=== PATIENT | female | born 1975 | race Caucasian/White ===

== ENCOUNTER 2016-09-22 19:12 | Emergency (ER) | payer MEDICAID ==
[~2016-09-22] VITALS: Ht 162.6 cm; Wt 59.0 kg
[2016-09-22 19:17] VITALS: Ht 162.6 cm; Wt 59.0 kg
[2016-09-22] MEDS ORDERED: IBUP-1542 PO (19:41)
[2016-09-22] MEDS ORDERED: IBUPROFEN 600 MG TAB PO ONE (20:00)
--- NOTE | 2016-09-22 21:22 | ERD ---
ER Documentation Chief Complaint Date/Time DATE: 09/22/16 TIME: 21:21 Chief Complaint left foot and leg x 1 month HPI Patient is a 41-year-old female with no medical problems who presents with bilateral foot pain. The pain she has had for 1 month. She said that all day her feet hurt. She tried Tylenol with no help. She had no trauma. She does not currently have a primary doctor. Upon review of old medical records this is the patient's sixth visit to the ER since 2011. ROS All systems reviewed and are negative except as per history of present illness. Medications Home Meds Active Scripts Ibuprofen* (Motrin*) 600 Mg Tab, 600 MG PO Q6H Y for PAIN AND OR ELEVATED TEMP, #30 TAB Prov:SHAHBAZ CHAUDHRY MD 09/22/16 Allergies Allergies: Coded Allergies: No Known Allergy (Unverified , 08/21/14) PMhx/Soc Medical and Surgical Hx: pt denies Medical Hx, pt denies Surgical Hx History of Surgery: No Anesthesia Reaction: No Hx Neurological Disorder: No Hx Respiratory Disorders: No Hx Cardiac Disorders: No Hx Psychiatric Problems: No Hx Miscellaneous Medical Probl: No Hx Alcohol Use: No Hx Substance Use: No Hx Tobacco Use: No Smoking Status: Never smoker FmHx Family History: No diabetes Physical Exam Vitals Vital Signs Date Time Temp Pulse Resp B/P Pulse Ox O2 Delivery O2 Flow Rate FiO2 09/22/16 19:17 97.8 75 20 109/56 99 Physical Exam Const: No acute distress Head: Atraumatic Eyes: Normal Conjunctiva ENT: Normal External Ears, Nose and Mouth. Neck: Full range of motion..~ No meningismus. Resp: Clear to auscultation bilaterally Cardio: Regular rate and rhythm, no murmurs Abd: Soft, non tender, non distended. Normal bowel sounds Skin: No sign of infection to the feet bilaterally Back: No midline or flank tenderness Ext: Pain to the plantar fasciitis of bilateral feet on the soles Neur: Awake and alert Psych: Normal Mood and Affect Results 24 hrs Current Medications Medications (Trade) Dose Ordered Sig/Tyler Route PRN Reason Start Time Stop Time Status Last Admin Dose Admin Ibuprofen (Motrin) 600 mg ONCE ONCE PO 09/22/16 20:00 09/22/16 20:01 DC 09/22/16 20:07 Procedures/MDM Patient is a 41-year-old female presents with bilateral foot pain. I believe she has plantar fasciitis. I do not believe she requires imaging tests at this time. She had no trauma. I doubt fracture dislocation. I doubt infection. She has good pulses. She can return for any worsening symptoms. The patient will be given ibuprofen for pain. She can return for any worsening symptoms. Departure Diagnosis: Primary Impression: Plantar fasciitis Additional Impression: Foot pain Laterality: bilateral Qualified Code: M79.671 - Pain in both feet Condition: Fair Patient Instructions: Plantar Fasciitis [facility] Usted se de la cruz hecho un examen mdico de control que le indica que no est en jaz condicin que requiera tratamiento urgente en el Departamento de Emergencia. Un estudio ms profundo y el tratamiento de vieira condicin pueden esperar sin ningn riesgo hasta que usted sea atendida/o en el consultorio de vieira mdico o jaz cl jovan. Es responsabilidad suya arreglar jaz hari para el seguimiento del alba. MANEJO DE CONDICIONES NO URGENTES EN EL FUTURO 1) Si usted tiene un mdico de atencin primaria: Usted debera llamar a vieira mdico de atencin primaria antes de venir al departamento de emergencia. Despus de las horas de consultorio, vieira doctor o vieira asociado/a est disponible por telfono. El mdico o enfermero de rosa en el servicio telefnico puede asesorarle por elvira medio para atender el problema, o alba contrario se puede programar jaz hari. 2) Si usted no tiene un mdico de atencin primaria: Llame al mdico o clnica de referencia que aparece abajo abelardo las horas de consultorio para hacer jaz hari para que le vean. CLINICAS: [facility] 193 [phone] [address] [facility] 629 [phone] [address] [facility] [phone] [facility] [phone] [facility] 554 [phone] [facility]. [phone] [address] Additional Instructions: Llame al doctor MAANA y escobar jaz HARI PARA DENTRO DE 1-2 NEELY.Dgale a la secretaria que nosotros le instruimos hacer esta hari.Avise o llame si vieira condicin se empeora antes de la hari. Regresa aqui si peor o no mejor. SHAHBAZ CHAUDHRY MD September 22, 2016 21:22
== END 2016-09-22 20:08 | disposition home or self-care (01) ==
LOC: FTE 19:12
DX: M72.2 Plantar fascial fibromatosis (principal); M79.672 Pain in left foot
CPT/HCPCS: Z7502; Z7610; 99283

== ENCOUNTER 2016-12-21 19:25 | Emergency (ER) | payer SELFPAY ==
[~2016-12-21] VITALS: Wt 56.0 kg
[~2016-12-21 19:25] MED LIST: IBUP-1542 PO
[2016-12-21] MEDS ORDERED: IBUP-1542 PO (21:29)
--- NOTE | 2016-12-21 21:29 | ERD ---
ER Documentation Chief Complaint Date/Time DATE: 12/21/16 Chief Complaint Right ear pain HPI The patient is a 41-year-old female who presents to the Emergency Department with complaint of right ear pain. The patient reports that yesterday she was cleaning out her ear using a Q-tip when she developed some pain. She is concerned that the cotton edge of the Q-tip may still be within her right ear. Therefore, she irrigated her ear out using hydrogen peroxide, water and suction , but continues to experience some pain. She presents the emergency department for evaluation. Denies any otorrhea or bloody discharge from the ear. Denies any change in hearing. Denies tinnitus. Denies dizziness, weakness, headache, nausea or vomiting. Denies any other complaints at this time. ROS All systems reviewed and are negative except as per history of present illness. Medications Home Meds Active Scripts Ibuprofen* (Motrin*) 600 Mg Tab, 600 MG PO Q6, #20 TAB Prov:DARLING LEVY PA-C 12/21/16 Ibuprofen* (Motrin*) 600 Mg Tab, 600 MG PO Q6H Y for PAIN AND OR ELEVATED TEMP, #30 TAB Prov:SHAHBAZ CHAUDHRY MD 09/22/16 Allergies Allergies: Coded Allergies: No Known Allergy (Unverified , 08/21/14) PMhx/Soc Medical and Surgical Hx: pt denies Medical Hx, pt denies Surgical Hx History of Surgery: No Anesthesia Reaction: No Hx Neurological Disorder: No Hx Respiratory Disorders: No Hx Cardiac Disorders: No Hx Psychiatric Problems: No Hx Miscellaneous Medical Probl: No Hx Alcohol Use: No Hx Substance Use: No Hx Tobacco Use: No Smoking Status: Never smoker Physical Exam Vitals Vital Signs Date Time Temp Pulse Resp B/P Pulse Ox O2 Delivery O2 Flow Rate FiO2 12/21/16 19:41 98.0 50 22 122/58 100 Physical Exam Const: Well-developed, well-nourished, in no acute distress. Head: Normocephalic. Atraumatic Eyes: Normal Conjunctiva ENT: Normal External Ears, Nose and Mouth. Right external ear canal is clear , with no foreign bodies, purulent drainage, bleeding, abrasions or lacerations. Tympanic membrane intact, with no erythema, effusion or dulling of the light reflex. Left tympanic membrane and external auditory canal is clear with no abnormalities. No mastoid tenderness bilaterally. No preauricular tenderness. No tenderness upon palpation or manipulation of the tragus or pinna bilaterally. Hearing grossly intact. Moist mucous mucous membranes. Neck: Supple. Full range of motion. Resp: Normal respiratory effort. Cardio: Normal peripheral perfusion. Skin: No petechiae or rashes. Ext: No clubbing, cyanosis, or edema. Neur: Awake and alert. Psych: Cooperative; appropriate. Procedures/MDM This is a 41-year-old female presenting to the Emergency Department with complaint of right ear pain since yesterday. She reports that she was cleaning her ear out with a Q-tip, and believes that the cotton may have fallen off. She now experiences right ear pain. She had no significant abnormalities noted on physical examination. Tympanic membranes were clear bilaterally, with no erythema, effusion or dulling of the light reflex. She had no mastoid tenderness , no preauricular tenderness. Hearing is grossly intact. No otorrhea or bloody discharge. No tenderness to palpation or manipulation of tragus or pinna. No foreign bodies were noted. No clinical evidence of otitis media, otitis externa , ear foreign body, cerumen impaction, ruptured tympanic membrane, sinusitis, URI, mastoiditis, cholesteatoma, bullous myringitis, Alize-Kennedy syndrome. After rest, the patient has no new complaints. Upon my review and interpretation of the patient's presentation and overall ER course, I believe the patient's symptoms are most consistent with otalgia of the right ear. At this time, the patient is in stable condition and therefore can be discharged home with a prescription for ibuprofen, and strict return precautions for signs of deteriorating or worsening condition. The patient is instructed to follow up with her primary medical provider within 2-3 days for reevaluation and further management or to return to the ER sooner for any new or worsening symptoms. I shared my medical decision making and plan with the patient at length and in great detail, and she verbally understands and agrees with the plan for further observation and care as an outpatient. At the time of discharge, all questions were answered. Departure Diagnosis: Primary Impression: Otalgia of right ear Condition: Stable Patient Instructions: Earache W/O Infection (Adult) Additional Instructions: Llame al doctor FREDERIC cody jaz HARI PARA DENTRO DE 2-3 NEELY.Dgale a la secretaria que nosotros le instruimos hacer esta hari.Avise o llame si vieira condicin se empeora antes de la hari. Regresa aqui si peor o no mejor. DARLING LEVY PA-C Dec 21, 2016 21:29
== END 2016-12-21 21:52 | disposition left against medical advice (07) ==
LOC: FTE 19:25
DX: H92.01 Otalgia, right ear (principal)
CPT/HCPCS: 99283